=== PATIENT | female | born 1980 | race Asian ===

== ENCOUNTER 2022-07-30 03:07 | Emergency (ER) | payer MEDICAID, OTHER ==
[~2022-07-30] VITALS: Ht 162.6 cm; Wt 69.9 kg
[2022-07-30] MEDS ORDERED: KETOROLAC TROMETHAMINE 60 MG INJ IM ONE ×2 (03:30→03:46)
[2022-07-30] MEDS ORDERED: CLINDAMYCIN HCL 150 MG CAPSULE PO ONE (03:30)
[2022-07-30] MEDS ORDERED: KETO10TA2 PO (03:32)
[2022-07-30] MEDS ORDERED: CLIN300C3 PO (03:32)
[2022-07-30] MEDS ORDERED: CLINDAMYCIN HCL 300 MG CAPSULE ONE (03:47)
--- NOTE | 2022-07-30 03:53 | NUR ---
Patient seen by ER MD, informed of plan of care, medicated as per order, ACI given remains stable for discharge.
[2022-07-30 03:54] VITALS: BP 140/95
== END 2022-07-30 03:54 | disposition home or self-care (01) ==
LOC: ER 03:07
DX: M27.2 Inflammatory conditions of jaws (principal); K21.9 Gastro-esophageal reflux disease without esophagitis; E03.9 Hypothyroidism, unspecified; Z90.89 Acquired absence of other organs; Z79.2 Long term (current) use of antibiotics; Z79.899 Other long term (current) drug therapy
CPT/HCPCS: 99283; J1885; A4663

== ENCOUNTER 2023-08-21 16:29 | Emergency (ER) | payer OTHER ==
[~2023-08-21] VITALS: Ht 162.6 cm; Wt 72.6 kg
[~2023-08-21 16:29] MED LIST: CLIN300C3 PO; KETO10TA2 PO
[2023-08-21 16:55] VITALS: O2SAT 98
[2023-08-21 18:31] LABS: HIV-1/2 ANTIBODY NON REACTIVE (NONREACTIVE)
[2023-08-21 18:32] LABS: HIV-1 p24 ANTIGEN NON REACTIVE (NONREACTIVE)
[2023-08-22 13:09] LABS: HEPATITIS B CORE AB, TOTAL Negative (Negative); HEPATITIS B SURFACE AB, QUAL Reactive (.); HEPATITIS C VIRUS ANTIBODY Non Reactive (Non Reactive)
== END 2023-08-21 18:29 | disposition home or self-care (01) ==
LOC: ER 16:43
DX: S61.238A Puncture wound without foreign body of other finger without damage to nail, initial encounter (principal); K21.9 Gastro-esophageal reflux disease without esophagitis; Z90.49 Acquired absence of other specified parts of digestive tract; E03.9 Hypothyroidism, unspecified; Z79.899 Other long term (current) drug therapy; Z60.2 Problems related to living alone; W26.8XXA Contact with other sharp object(s), not elsewhere classified, initial encounter; Y93.89 Activity, other specified; Y92.89 Other specified places as the place of occurrence of the external cause; Y99.8 Other external cause status
CPT/HCPCS: 36415; 86704; 86706; 86803; 87806; A4606; A4663

== ENCOUNTER 2023-09-21 22:32 | Emergency (ER) | payer MEDICAID, OTHER ==
[~2023-09-21] VITALS: Ht 162.6 cm; Wt 68.0 kg
[2023-09-22] MEDS: IV NORMAL SALINE 1000 ML BAG IV ONE (01:15)
[2023-09-22] MEDS ORDERED: METOCLOPRAMIDE HCL 10 MG/2 ML VIAL ONE (01:17)
[2023-09-22] MEDS ORDERED: DEXAMETHASONE SOD PHOSPHATE 10 MG INJ ONE (01:17)
[2023-09-22] MEDS ORDERED: KETOROLAC TROMETHAMINE 15 MG INJ ONE (01:17)
[2023-09-22] MEDS: DEXAMETHASONE SOD PHOSPHATE 4 MG INJ IV ONE (01:18)
[2023-09-22] MEDS: METOCLOPRAMIDE HCL 10 MG/2 ML VIAL IV ONE (01:23)
[2023-09-22] MEDS: KETOROLAC TROMETHAMINE 15 MG INJ IVP ONE (01:23)
[2023-09-22 04:26] VITALS: BP 115/76; O2SAT 97
== END 2023-09-22 02:10 | disposition home or self-care (01) ==
LOC: ER 22:34
DX: G43.909 Migraine, unspecified, not intractable, without status migrainosus (principal); E03.9 Hypothyroidism, unspecified; K21.9 Gastro-esophageal reflux disease without esophagitis; Z79.899 Other long term (current) drug therapy; Z98.890 Other specified postprocedural states; Z60.2 Problems related to living alone
CPT/HCPCS: 99284; 96374; 96375; 96361; J1100; J1885; J2765; J7040; A4606; A4663

== ENCOUNTER 2024-09-23 03:18 | Emergency (ER) | payer MEDICAID ==
[~2024-09-23] VITALS: Ht 162.6 cm; Wt 70.3 kg
[2024-09-23 03:57] LABS: BASOPHILS # (AUTO) 0.1 K/UL (0.0-0.2); BASOPHILS % (AUTO) 0.8 % (0.0-2.0); EOSINOPHILS # (AUTO) 0.2 K/uL (0.0-0.7); EOSINOPHILS % (AUTO) 2.5 % (0.0-7.0); HEMATOCRIT 35.2 % (31.2-41.9); HEMOGLOBIN 11.5 g/dL (10.9-14.3); LYMPHOCYTES # (AUTO) 2.3 K/uL (0.8-4.8); LYMPHOCYTES % (AUTO) 29.9 % (20.5-51.5); MEAN CORPUSCULAR HEMOGLOBIN 26.1 uug (24.7-32.8); MEAN CORPUSCULAR HGB CONC 33 g/dL (32.3-35.6); MEAN CORPUSCULAR VOLUME 79.8 fL (75.5-95.3); MONOCYTES # (AUTO) 0.5 K/uL (0.1-1.30); MONOCYTES % (AUTO) 5.9 % (0.0-11.0); NEUTROPHILS # (AUTO) 4.7 K/uL (1.8-8.9); NEUTROPHILS % (AUTO) 60.9 % (38.5-71.5); PLATELET COUNT (AUTO) 296 K/uL (179-408); RED CELL DISTRIBUTION WIDTH 15.3 % (12.3-17.7); WHITE BLOOD COUNT (AUTO) 7.8 K/uL (3.8-11.8)
[2024-09-23 04:01] LABS: DIFFERENTIAL COMMENT 1
[2024-09-23] MEDS ORDERED: ONDA4TAB11 PO (04:42)
[2024-09-23] MEDS ORDERED: HYDR-4209 PO (04:42)
[2024-09-23] MEDS ORDERED: AMOX-430 PO (04:42)
[2024-09-23 04:50] VITALS: BP 131/85; O2SAT 99
== END 2024-09-23 04:50 | disposition home or self-care (01) ==
LOC: ER 03:20
DX: K11.20 Sialoadenitis, unspecified (principal); E03.9 Hypothyroidism, unspecified; Z90.89 Acquired absence of other organs; Z20.822 Contact with and (suspected) exposure to COVID-19
CPT/HCPCS: 36415; 76881; 85025; A4606; A4663